=== PATIENT | female | born 1950 | race Caucasian/White ===

== ENCOUNTER 2019-05-15 11:38 | Emergency (ER) | payer MEDICARE, OTHER ==
[~2019-05-15] VITALS: Ht 154.9 cm; Wt 55.8 kg
--- OUTSIDE RECORDS SUMMARY | 2019-05-15 11:42 | XMS REPORT | Summary of Care ---
Author Author [facility] [place] Organization [facility] [place] Address Unknown Phone Unavailable Encounter HQ Clarisantr_shira(FIN) [id number] Date(s): 02/18/17 - 02/18/17 [facility] [place] [address] [place] [address]- [phone] Discharge Disposition: Home or Self Care Attending Physician: Kaiser Briones DC Vital Signs No data available for this section Problem List No data available for this section Allergies, Adverse Reactions, Alerts No data available for this section Medications No data available for this section Results No data available for this section Immunizations No data available for this section Procedures No data available for this section Social History No data available for this section Assessment and Plan No data available for this section
--- OUTSIDE RECORDS SUMMARY | 2019-05-15 11:42 | XMS REPORT | Summary of Care ---
Author Author [facility] Outpatient [facility] Outpatient [facility] Address Unknown Phone Unavailable Encounter HQ Clarisantr_shira(FIN) [id number] Date(s): 08/01/17 - 08/01/17 [facility] Outpatient Imaging [facility] [address] [place] [phone] Discharge Disposition: Home or Self Care Attending Physician: Kaiser Briones MD Vital Signs No data available for this [...]
--- OUTSIDE RECORDS SUMMARY | 2019-05-15 11:42 | XMS REPORT | Summary of Care ---
Author Author [facility] Organization [facility] Address Unknown Phone Unavailable Encounter HQ Encntr_alias(FIN) [id number] Date(s): 02/12/18 - 02/12/18 [facility] [address] [place] [address]- [phone] Encounter Diagnosis Obstructive sleep apnea (adult) (pediatric) (Final) - Discharge Disposition: Home or Self Care Attending Physician: Kaiser Briones MD Referring Physician: Kaiser Briones MD Vital Signs No [...]
--- OUTSIDE RECORDS SUMMARY | 2019-05-15 11:42 | XMS REPORT ---
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 Allergies, Adverse Reactions, Alerts This patient has no known allergies or adverse reactions. Medications This patient has no known medications. Encounters Start Date/Time End Date/Time Encounter Type Admission Type Attending Clinicians Care Facility Care Department Encounter ID 2019-03-05 13:02:00 2019-03-05 13:02:00 Outpatient [id number] Results Test Description Test Time Test Comments Text Results Atomic Results Result Comments SCR MAMM BILATERAL MAYRA CAD DIGITAL 2019-04-27 16:08:23 - SCR MAMM BILATERAL MAYRA CAD DIGITALBILATERAL DIGITAL SCREENING MAMMOGRAM 3D/2D WITH CAD: 04/27/2019CLINICAL: Asymptomatic. Digital breast tomosynthesis was performed in addition to routine CC and MLO views. Current mammographic images were evaluated by either a Sionex M-Vu or a [employer] ImageChecker CAD (computer aided detection system). Comparison is made to exams dated 04/18/2018 mammogram, 04/22 mammogram, 04/17/2017 mammogram, 05/06/2018 ultrasound, 05/29/2017 aspiration, and 05/07/2017 ultrasound - [facility]. There are scattered fibroglandular tissues in both breasts. There is redemonstration of an oval mass in the right breast at the 9 o'clock position, previously identified as a complicated cyst, and demonstrates no suspicious interval change since 2016, consistent with benign etiology. No suspicious mass, architectural distortion, malignant type calcification, or lymph node abnormality detected. IMPRESSION: INCOMPLETE ASSESSMENT: ADDITIONAL IMAGING EVALUATION RECOMMENDEDThe patient was subsequently taken to ultrasound for further evaluation.Ronda abbott/:04/27/2019 16:08:23 Entry: - 04/30/2019 08:34:57Imaging Technologist: Courtney NERI, [facility] BI-RADS: 0 Indeterminate BREAST ULTRASOUND BILATERAL 2019-04-27 16:08:00 - BREAST ULTRASOUND BILATERALULTRASOUND OF BOTH BREASTS AND BOTH AXILLA: 04/27/2019Comparison is made to exams dated 04/18/2018 mammogram, 05/07/2017 mammogram, 04/17/2017 mammogram, 05/06/2018 ultrasound, 05/29/2017 aspiration, and [facility] Real-time ultrasound of both breasts and both axilla was performed. RIGHT BREAST;The complicated cyst at 9 o'clock, 5 cm from the nipple, demonstrates no suspicious interval change compared to the prior ultrasound dated 05/07/2017. This cyst has demonstrated stability mammographically since 2016, consistent with benign etiology. Note, this right breast cyst had been aspirated on 05/29/2017 and subsequently refilled with fluid. There is no internal vascularity with color flow imaging.Surgical scar is noted at 12 o'clock, 1 cm from the nipple, consistent with the patient's history of right breast excisional biopsy at this location.No suspicious masses or areas of abnormal shadowing are identified.Morphologically normal-appearing lymph nodes are seen in the axilla.LEFT BREAST:There is sonographically normal-appearing tissue. No suspicious masses or areas of abnormal shadowing are identified.Morphologically normal-appearing lymph nodes are seen in the axilla.IMPRESSION: BENIGN There is no mammographic or sonographic evidence of malignancy in either breast. Resume annual screening mammography in one year. Findings and recommendations were discussed with the patient at the conclusion of the examination today.Ronda aPge D.O. al/:04/27/2019 16:08:00 Entry: cp - 04/28/2019 10:13:02Imaging Technologist: Courtney NERI, [facility] BIRADS 1-2 Combo FU Letter Ultrasound BI-RADS: 2 Benign
--- OUTSIDE RECORDS SUMMARY | 2019-05-15 11:42 | XMS REPORT | Summary of Care ---
Author Author [facility] Organization [facility] Address Unknown Phone Unavailable Encounter HQ Encntr_alias(FIN) [id number] Date(s): 03/05/19 - 03/05/19 [facility] [address] [place] [address]- Discharge Disposition: Home or Self Care Attending Physician: Garry More MD Referring Physician: Garry More MD Vital Signs No data available for [...]
--- OUTSIDE RECORDS SUMMARY | 2019-05-15 11:42 | XMS REPORT | Summary of Care ---
Author Author [facility] - [place] Organization [facility] [place] Address Unknown Phone Unavailable Encounter HQ Anthony(FIN) [id number] Date(s): 07/07/18 - 07/07/18 [facility] - [place] [address] [address]- [phone] Encounter Diagnosis Bilateral primary osteoarthritis of hip (Final) - 07/10/18 Trochanteric bursitis, right hip (Final) - Trochanteric bursitis, left hip (Final) - Pain in right hip (Final) - Pain in left hip (Final) - Other sprain of left hip, initial encounter (Final) - Other sprain of right hip, initial encounter (Final) - Acquired absence of both cervix and uterus (Final) - Effusion, right hip (Final) - Discharge Disposition: Home or Self Care Attending Physician: Harley Reid Referring Physician: Harley Reid Vital Signs No data available for this [...]
--- OUTSIDE RECORDS SUMMARY | 2019-05-15 11:42 | XMS REPORT | Continuity of Care Document ---
Author Author [facility] Address Unknown Phone Unavailable Care Team Providers Care Technical Training Instructor Name Role Phone [employer] Information Corban Direct Unavailable Unavailable Problems Problem Status Onset Date Classification Date Reported Comments Source UNILATERAL PRIMARY OSTEOARTHRITIS, RIGHT Active 03/02/2019 [facility] Bilateral primary osteoarthritis of hip 07/11/2018 01/24/2019 [facility] [address] Active 02/12/2018 [facility] R60.9 - EDEMA, UNSPECIFIED Active 07/30/2017 [facility] E04.1 - NONTOXIC SINGLE THYROID NODULE Active 02/14/2017 [facility] Obstructive sleep apnea (pediatric) 02/15/2018 [facility] Trochanteric bursitis, right hip 01/24/2019 [facility] Trochanteric bursitis, left hip 01/24/2019 [facility] Pain in right hip 01/24/2019 [facility] Pain in left hip 01/24/2019 [facility] Other sprain of left hip, initial encounter 01/24/2019 [facility] Other sprain of right hip, initial encounter 01/24/2019 [facility] Acquired absence of both cervix and uterus 01/24/2019 [facility] Effusion, right hip 01/24/2019 [facility] OBSTRUCTIVE SLEEP APNEA (ADULT) (PEDIATR Active [facility] UNILATERAL PRIMARY OSTEOARTHRITIS, RIGHT Active [facility] Medications No Data Provided for This Section Allergies, Adverse Reactions, Alerts No Known Medication Allergies Immunizations No Data Provided for This Section Results No Data Provided for This Section Pathology Reports No Data Provided for This Section Diagnostic Reports Report Value Date Source Arthrogram hip VR Patient Name: EDIS ASHTON : 1950; Age: 68 years y/o Female MR: [id number] Study: Arthrogram hip VR 03/05/2019 13:10 CDT Ordering Physician: MD Garry More MD Clinical Indication: - degenerative joint disease; Comparison: None Total fluoroscopy time 14 seconds. Air kerma 3 mGy Right hip arthrogram, intra-articular injection of steroid. Timeout performed prior to the procedure. Patient was prepped and draped in a sterile fashion. Lidocaine was used for local anesthesia. 20-gauge needle was advanced into the right hip joint. Nonionic water-soluble contrast arthrogram performed to confirm intra-articular needle position. 12 mg betamethasone, and 4 mL of 0.25% bupivacaine were injected into the right hip. Procedure was well-tolerated clinically. SL: [id number] 03/05/2019 [facility] wo contrast MRI EXAMINATION: 1. MRI of the left hip without contrast 2. MRI of the right hip without contrast HISTORY: M70.61 Trochanteric bursitis, right hip, M25.551 Pain in right hip; M70.62 Trochanteric bursitis, left hip, M25.552 Pain in left hip; bilateral, right greater than left, hip pain COMPARISON: There are no radiographs available for review. TECHNIQUE: Multiplanar, multisequence magnetic resonance imaging of the pelvis and left hip was performed with a local coil without contrast. As a separate station examination, additional multiplanar, multisequence magnetic resonance images of the right hip was then performed with a local coil without contrast. FINDINGS: Left Hip: --Labrum: There is a tear involving the posterosuperior and posterior left hip labrum. --Cartilage and Bone: There is moderate left hip arthrosis with multifocal deep partial thickness and areas of near full-thickness chondrosis, most severe along the anterosuperior and superolateral left hip joint space. There are also foci of subchondral cystic change along the posterior aspect of the superolateral and posterosuperior left acetabulum. --Ligaments: The left ligamentum teres is intact. The left hip capsular ligaments are intact. -- Other: There is a physiologic amount of fluid within the left hip. Right Hip: --Labrum: There is a tear involving the posterosuperior and posterior right hip labrum. --Cartilage and Bone: There is moderate to severe right hip arthrosis with associated multifocal high-grade, deep partial thickness to full-thickness chondrosis, most severe along the anterosuperior and superolateral right hip joint space. There are also small foci of subchondral edema and cystic change within the acetabulum. --Ligaments: The right ligamentum teres is intact. The right hip capsular ligaments are intact. -- Other: There is a small to moderate size right hip effusion. Bone: There is no acute fracture. There is no evidence of avascular necrosis of either hip. The symphysis pubis and sacroiliac joints are normal. Muscles and Tendons: There is mild bilateral common hamstring origin tendinosis without tendon tear. The remaining tendinous attachments of both hips are intact and normal. The musculature of the pelvis including the piriformis muscles is normal and symmetric. Soft Tissues: There is mild left and minimal right greater trochanteric bursitis. The sciatic nerves are normal and symmetric. Other: Uterus is surgically absent. Visualized portions of the intraperitoneal pelvis and lower abdomen are otherwise unremarkable. Visualized portions of the lower lumbar spine demonstrate a transitional lumbosacral segment. IMPRESSION: 1. Moderate left hip arthrosis with multifocal deep partial thickness and areas of near full-thickness chondrosis, most severe along the anterosuperior and superolateral left hip joint space, and foci of subchondral cystic change within the left acetabulum as described above. 2. Moderate to severe right hip arthrosis with associated multifocal high-grade, deep partial thickness to full-thickness chondrosis, most severe along the anterosuperior and superolateral right hip joint, and small foci of subchondral edema and cystic change within the right acetabulum. 3. Tears involving the posterosuperior and posterior bilateral hip corinna. 4. Small to moderate-sized right hip effusion. 5. Mild left and minimal right greater trochanteric bursitis. 6. Mild bilateral common hamstring origin tendinosis without tendon tear. 7. Status post hysterectomy. 07/07/2018 [facility] wo contrast MRI EXAMINATION: 1. MRI of the left hip without contrast 2. MRI of the right hip without contrast HISTORY: M70.61 Trochanteric bursitis, right hip, M25.551 Pain in right hip; M70.62 Trochanteric bursitis, left hip, M25.552 Pain in left hip; bilateral, right greater than left, hip pain COMPARISON: There are no radiographs available for review. TECHNIQUE: Multiplanar, multisequence magnetic resonance imaging of the pelvis and left hip was performed with a local coil without contrast. As a separate station examination, additional multiplanar, multisequence magnetic resonance images of the right hip was then performed with a local coil without contrast. FINDINGS: Left Hip: --Labrum: There is a tear involving the posterosuperior and posterior left hip labrum. --Cartilage and Bone: There is moderate left hip arthrosis with multifocal deep partial thickness and areas of near full-thickness chondrosis, most severe along the anterosuperior and superolateral left hip joint space. There are also foci of subchondral cystic change along the posterior aspect of the superolateral and posterosuperior left acetabulum. --Ligaments: The left ligamentum teres is intact. The left hip capsular ligaments are intact. -- Other: There is a physiologic amount of fluid within the left hip. Right Hip: --Labrum: There is a tear involving the posterosuperior and posterior right hip labrum. --Cartilage and Bone: There is moderate to severe right hip arthrosis with associated multifocal high-grade, deep partial thickness to full-thickness chondrosis, most severe along the anterosuperior and superolateral right hip joint space. There are also small foci of subchondral edema and cystic change within the acetabulum. --Ligaments: The right ligamentum teres is intact. The right hip capsular ligaments are intact. -- Other: There is a small to moderate size right hip effusion. Bone: There is no acute fracture. There is no evidence of avascular necrosis of either hip. The symphysis pubis and sacroiliac joints are normal. Muscles and Tendons: There is mild bilateral common hamstring origin tendinosis without tendon tear. The remaining tendinous attachments of both hips are intact and normal. The musculature of the pelvis including the piriformis muscles is normal and symmetric. Soft Tissues: There is mild left and minimal right greater trochanteric bursitis. The sciatic nerves are normal and symmetric. Other: Uterus is surgically absent. Visualized portions of the intraperitoneal pelvis and lower abdomen are otherwise unremarkable. Visualized portions of the lower lumbar spine demonstrate a transitional lumbosacral segment. IMPRESSION: 1. Moderate left hip arthrosis with multifocal deep partial thickness and areas of near full-thickness chondrosis, most severe along the anterosuperior and superolateral left hip joint space, and foci of subchondral cystic change within the left acetabulum as described above. 2. Moderate to severe right hip arthrosis with associated multifocal high-grade, deep partial thickness to full-thickness chondrosis, most severe along the anterosuperior and superolateral right hip joint, and small foci of subchondral edema and cystic change within the right acetabulum. 3. Tears involving the posterosuperior and posterior bilateral hip corinna. 4. Small to moderate-sized right hip effusion. 5. Mild left and minimal right greater trochanteric bursitis. 6. Mild bilateral common hamstring origin tendinosis without tendon tear. 7. Status post hysterectomy. 07/07/2018 [facility] Ext Lower Venous Doppler Bilat US EXAM: US BILATERAL LOWER EXTREMITY VENOUS DOPPLER DATE: 08/01/2017 2:50 PM DIGITAL COORDINATOR INDICATION: - R60.9 Edema, unspecified. Bilateral leg venous and fatigue for several years with intermittent swelling. Tingling sensation in the left posterior lateral popliteal fossa. ADDITIONAL INFORMATION: None. COMPARISON: None. TECHNIQUE: Multiplanar grayscale, color Doppler and spectral Doppler ultrasound images of the bilateral lower extremity veins. FINDINGS: Right Thigh Veins: Common Femoral: Patent. Femoral (SFV): Patent. Popliteal: Patent. Proximal Greater Saphenous: Patent. Deep Femoral Veins: Patent. Right Calf Veins: Paired Peroneal: Patent. Posterior Tibial Calf: Patent. Left Thigh Veins: Common Femoral: Patent. Femoral (SFV): Patent. Popliteal: Patent. Proximal Greater Saphenous: Patent. Deep Femoral Veins: Patent. Left Calf Veins: Paired Peroneal: Patent. Posterior Tibial Calf: Patent. IMPRESSION: Normal. No deep venous thrombosis (DVT). No abnormalities of the popliteal fossa are seen bilaterally. 08/01/2017 [facility] Thyroid US EXAM: Thyroid US HISTORY: E04.1 Nontoxic single thyroid nodule - E04.1 Nontoxic single thyroid nodule COMPARISON: None TECHNIQUE: Cramer scale and color doppler imaging of the thyroid. FINDINGS: The right lobe of the thyroid measures 4.7 x 1.4 x 1.7. The isthmus measures 0.7 cm. The left lobe of the thyroid is absent. There is heterogeneous hypervascular nodular tissue in the lower right thyroid lobe which measures 2.8 x 1.7 x 1.7 cm. IMPRESSION: Ill-defined nodule or nodular tissue which appears to be arising from the lower pole of the right thyroid. Comparison with prior studies would be helpful. No residual tissue is seen in the left thyroid resection bed 02/18/2017 [facility] Consultation Notes No Data Provided for This Section Discharge Summaries No Data Provided for This Section History and Physicals No Data Provided for This Section Vital Signs No Data Provided for This Section Encounters Location Location Details Encounter Type Encounter Number Reason For Visit Attending Provider ADM Date DC Date Status Source [facility] [place] [facility] [id number] Kaiser Briones 02/18/2017 02/19/2017 [facility] [place] [facility] - [place] [facility] [id number] Kaiser Briones 08/01/2017 08/02/2017 [facility] Outpatient [id number] Kaiser Briones 02/13/2018 02/13/2018 [facility] [place] [facility] [id number] Harley Reid 07/07/2018 07/08/2018 [facility] Outpatient [id number] Garry More 03/05/2019 03/06/2019 [facility] Procedures No Data Provided for This Section Assessment and Plan No Data Provided for This Section Plan of Care No Data Provided for This Section Social History Social History Date Source No data available for this section 03/06/2019 [facility] No data available for this section 07/08/2018 [facility] No data available for this section 08/02/2017 [facility] Family History No Data Provided for This Section Advance Directives No Data Provided for This Section Functional Status No Data Provided for This Section
--- NOTE | 2019-05-15 12:42 | Diagnostic Imaging Report ---
EXAMINATION: CXR 2 VIEW - [facility] INDICATION: Cough. COMPARISON: None FINDINGS: TUBES and LINES: None. LUNGS: Lungs are well inflated. There is no evidence of pneumonia or pulmonary edema. Calcified nodular opacities in the left lower lung likely represent calcified granulomas. PLEURA: No pleural effusion or pneumothorax. HEART AND MEDIASTINUM: The cardiomediastinal silhouette is unremarkable. BONES AND SOFT TISSUES: No acute radiographic abnormality. UPPER ABDOMEN: No free air under the diaphragm. Surgical clips project over the upper abdomen. IMPRESSION: No acute radiographic abnormality. Signed by: Dr. Emilee Cerda MD on 05/15/2019 12:38 PM
[2019-05-15] MEDS ORDERED: ZITHROMAX250 MG PO (12:54)
== END 2019-05-15 13:05 | disposition home or self-care (01) ==
LOC: FSED 11:38
DX: J06.0 Acute laryngopharyngitis (principal); E03.9 Hypothyroidism, unspecified; Z87.891 Personal history of nicotine dependence; Z88.5 Allergy status to narcotic agent; J06.9 Acute upper respiratory infection, unspecified
CPT/HCPCS: 71046; 99283

== ENCOUNTER → 2022-05-03 | Outpatient (CLI) | payer MEDICARE ==
[~2022-05-03] MED LIST: ZITHROMAX250 MG PO
== END ==
LOC: US 09:55
PROVIDERS: ATTEND Internal Medicine Gastroenterology
DX: R10.84 Generalized abdominal pain (principal); R10.11 Right upper quadrant pain
CPT/HCPCS: 76700